=== PATIENT | female | born 1990 | race Caucasian/White ===

== ENCOUNTER 2020-02-01 08:53 | Emergency (ER) | payer SELFPAY ==
[~2020-02-01] VITALS: Ht 165.1 cm; Wt 90.9 kg
[2020-02-01] MEDS ORDERED: ipratropium/albuterol 3ml nebule NEB ONE (09:00)
[2020-02-01] MEDS ORDERED: dexamethasone 4mg tablet PO ONE (09:00)
[2020-02-01] MEDS ORDERED: ALBU18HF2 INH (09:57)
[2020-02-01] MEDS ORDERED: PRED20TA PO (09:57)
--- NOTE | 2020-02-01 10:15 | NUR ---
Pt treated/discharged prior to nursing assessment
[2020-02-01 10:16] VITALS: BP 139/91
== END 2020-02-01 10:18 | disposition home or self-care (01) ==
LOC: ER 08:53
DX: J45.901 Unspecified asthma with (acute) exacerbation (principal); J06.9 Acute upper respiratory infection, unspecified; Z79.899 Other long term (current) drug therapy
CPT/HCPCS: 94640; 94760; 99283

== ENCOUNTER 2021-08-18 01:24 | Emergency (ER) | payer BC, OTHER ==
[~2021-08-18] VITALS: Ht 165.1 cm; Wt 90.9 kg
[~2021-08-18 01:24] MED LIST: ALBU18HF2 INH
[2021-08-18 01:49] VITALS: BP 149/111
[2021-08-18 02:26] LABS: BASOPHILS # (AUTO) 0.1 X10'3 (0-0.2); BASOPHILS % (AUTO) 0.6 % (0-1); EOSINOPHILS # (AUTO) 0.4 X10'3 (0-0.9); EOSINOPHILS % (AUTO) 2.8 % (0-6); HEMATOCRIT 40.2 % (35.0-45.0); HEMOGLOBIN 14.2 g/dl (12.0-16.0); LYMPHOCYTES # (AUTO) 1.9 X10'3 (1.1-4.8); LYMPHOCYTES % (AUTO) 14.8 % (21-51); MEAN CORPUSCULAR HEMOGLOBIN 33.4 PG (27.0-31.0); MEAN CORPUSCULAR HGB CONC 35.4 g/dL (33.0-36.5); MEAN CORPUSCULAR VOLUME 94.3 FL (78-98); MEAN PLATELET VOLUME 7.1 FL (7.4-10.4); MONOCYTES % (AUTO) 7.8 % (2-12); NEUTROPHILS # (AUTO) 9.4 X10'3 (1.8-7.7); PLATELET COUNT 406 X10'3 (140-440); RED BLOOD COUNT 4.26 X10'6 (4.20-5.60); RED CELL DISTRIBUTION WIDTH 13.1 % (11.5-14.5); WHITE BLOOD COUNT 12.7 X10'3 (4.5-11.0)
[2021-08-18 02:35] LABS: ALBUMIN 3.8 G/DL (3.4-5.0); ANION GAP 12 (8-16); BLOOD UREA NITROGEN 12 MG/DL (7-18); BUN/CREATININE RATIO 13.3 (6.6-38.0); CALCIUM 9.3 MG/DL (8.5-10.1); CHLORIDE 104 MMOL/L (99-107); GLUCOSE 118 MG/DL (70-104); POTASSIUM 3.5 MMOL/L (3.5-5.1); SODIUM 139 MMOL/L (135-145); eGFR 73 ML/MIN
[2021-08-18 03:19] LABS: URINE HCG NEGATIVE (NEG)
[2021-08-18 03:37] LABS: CLARITY,URINE SLIGHTLY CLOUDY (Clear); COLOR,URINE STRAW (Yellow); UA COLLECTION TYPE CLN CATCH MIDSTREAM
[2021-08-18 03:38] LABS: GLUCOSE, URINE NEGATIVE (Neg); KETONES,URINE NEGATIVE (Neg); NITRITES, URINE NEGATIVE (Neg); OCCULT BLOOD,URINE LARGE (Neg); PROTEIN,URINE >=1000 mg/dl (Neg)
[2021-08-18 03:39] LABS: LEUKOCYTE ESTERASE ,URINE MODERATE (Neg); UROBILINOGEN,URINE 0.2 E.U/dL (0.2-1.0)
[2021-08-18 03:44] LABS: WBC,URINE TNTC /HPF (0-4)
[2021-08-18 03:45] LABS: BACTERIA,URINE 1+ /HPF (Neg); RBC,URINE NONE SEEN /HPF (0-2); SQUAMOUS EPITHELIAL CELL,UR NONE SEEN /LPF (FEW)
[2021-08-18] MEDS ORDERED: CefTRIAXone/D5W-Rocephin 1gm 50 ML IV ONE (03:55)
[2021-08-18] MEDS ORDERED: ketorolac trometh. 30mg/ml inj. IV ONE (03:55)
[2021-08-18] MEDS ORDERED: CEPH-585 PO (05:06)
== END 2021-08-18 05:12 | disposition home or self-care (01) ==
LOC: ER 01:25
DX: N30.00 Acute cystitis without hematuria (principal); R11.0 Nausea; M54.5 Low back pain; R30.9 Painful micturition, unspecified; J45.909 Unspecified asthma, uncomplicated; F19.90 Other psychoactive substance use, unspecified, uncomplicated; Z72.89 Other problems related to lifestyle; Z79.2 Long term (current) use of antibiotics; Z79.899 Other long term (current) drug therapy
CPT/HCPCS: 36415; 74176; 80048; 81001; 81025; 85025; 96365; 96375; 99284; J0696; J1885